=== PATIENT | male | born 1945 | race Two or more races ===

== ENCOUNTER 2023-10-08 12:53 | Inpatient (IN) | payer MEDICARE, OTHER ==
[~2023-10-08] VITALS: Ht 175.3 cm; Wt 86.4 kg
[2023-10-08] MEDS: ASPirin 325 MG TAB PO ONE (13:41)
[2023-10-08] MEDS: MAGNESIUM SULFATE 1GM/100ML 100 ML IV SCH (13:41)
[2023-10-08] MEDS: MORPHINE SULFATE 4 MG/ML SYR/VIAL IV ONE (13:42)
[2023-10-08 13:52] LABS: Basophils # (auto) 0 10 ^3/uL (0-0.2); Basophils % (auto) 0.2 % (0.0-2.0); Eosinophils # (auto) 0 10 ^3/uL (0-0.8); Hematocrit 44.9 % (41.0-53.0); Hemoglobin 15.2 g/dL (13.5-17.5); Mean Corpuscular Hgb Conc. 33.8 g/dL (32.0-36.0); Mean Corpuscular Volume 91.6 fL (80.0-100.0); Monocytes # (auto) 0.2 10 ^3/uL (0-1.3); Monocytes % (auto) 3.8 % (0.0-12.0); Neutrophils # (auto) 5.1 10 ^3/uL (1.6-8.6); White Blood Cell 6.4 10^3/uL (4.4-10.8)
[2023-10-08 13:56] VITALS: PULSE 114; RESP 22; O2SAT 94
[2023-10-08 14:21] LABS: Alanine Aminotransferase 36 U/L (7-40); Alkaline Phosphatase 61 U/L (46-116); Anion Gap 7 (5-15); Aspartate Aminotransferase 23 U/L (13-40); BUN/Creatinine Ratio 11.1 (10.0-20.0); Blood Urea Nitrogen 15 mg/dL (9-23); Calcium 8.5 mg/dL (8.7-10.4); Carbon Dioxide 27 mmol/L (20-30); Chloride 104 mmol/L (98-107); Glucose 217 mg/dL (74-106); Magnesium 1.7 mg/dL (1.6-2.6); Potassium 3.4 mmol/L (3.5-5.1); Sodium 138 mmol/L (136-145)
[2023-10-08 14:22] LABS: Bilirubin, Total 0.6 mg/dL (0.2-1.0); Total Protein 6.4 g/dL (5.7-8.2)
[2023-10-08 14:22] LABS: COVID19 ANTIGEN SOFIA FIA POSITIVE (NEGATIVE)
[2023-10-08] MEDS: TERBUTALINE SULFATE 1 MG/ML 1ML VIAL SC ONE (14:23)
[2023-10-08 14:25] LABS: Rapid Influenza A Negative (Negative); Rapid Influenza B Negative (Negative)
[2023-10-08 15:11] LABS: Urine Bacteria None Seen /hpf (None Seen)
[2023-10-08 15:22] LABS: Urine Blood Negative /uL (Negative); Urine Clarity Clear (Clear); Urine Color Yellow (Yellow); Urine Protein, UAD 2+ (Negative); Urine Urobilinogen Normal (Negative); Urine WBC <1 /hpf (0 - 3)
[2023-10-08] MEDS ORDERED: REMDESIVIR PER PHARMACY 0 ML IV SCH (15:30)
[2023-10-08] MEDS ORDERED: ASPI-325 PO (15:55)
[2023-10-08] MEDS ORDERED: ALBU108A5 INH (15:55)
[2023-10-08] MEDS ORDERED: LEVOTAB51 PO (15:55)
[2023-10-08] MEDS ORDERED: FIN5T PO (15:55)
[2023-10-08] MEDS ORDERED: AMLO1TAB22 PO (15:55)
[2023-10-08] MEDS ORDERED: ICOS1CAP3 PO (15:55)
[2023-10-08] MEDS ORDERED: DIPH25CA51 PO (15:55)
[2023-10-08] MEDS ORDERED: LOPE2CAP2 PO (15:55)
[2023-10-08] MEDS ORDERED: CHOL20002 PO (15:55)
[2023-10-08] MEDS ORDERED: GABA-1250 PO (15:55)
[2023-10-08] MEDS ORDERED: DIPH-751 PO (15:55)
[2023-10-08] MEDS ORDERED: METO-289 PO (15:55)
[2023-10-08] MEDS ORDERED: NIRM1TAB8 PO (15:55)
[2023-10-08] MEDS ORDERED: FLUT50SP NAS (15:55)
[2023-10-08] MEDS ORDERED: FEXO-131 PO (15:55)
[2023-10-08] MEDS ORDERED: TAMS0.4C39 PO (15:55)
[2023-10-08] MEDS ORDERED: NITROGLYCERIN 0.4 MG SL TAB SL PRN (16:00)
[2023-10-08] MEDS ORDERED: ALBUTEROL SULF 2.5 MG/0.5ML(0.5%) NEB SOLN NEB PRN (16:00)
[2023-10-08] MEDS ORDERED: ACETAMINOPHEN 325 MG TAB PO PRN (16:00)
[2023-10-08] MEDS ORDERED: MORPHINE SULFATE INJ 2 MG/ml SYRG IV PRN (16:00)
[2023-10-08] MEDS: POTASSIUM EFFERVESENT TAB 25 MEQ PO ONE (16:38)
[2023-10-08] MEDS: methylPREDNISolone SOD SUCC 125 MG/2 ML VL IV ONE (16:39)
[2023-10-08] MEDS: FUROSEMIDE 20 MG/2 ML VIAL IV ONE (16:40)
[2023-10-08 16:43] LABS: Triglycerides 116 mg/dL (< 150)
[2023-10-08 16:44] LABS: LDL Cholesterol 67 mg/dL (< 100)
[2023-10-08 16:45] LABS: Cholesterol 133 mg/dL (< 200); HDL Cholesterol 33 mg/dL (40-59)
[2023-10-08] MEDS: REMDESIVIR 200 MG in NS 210ml LOADING DOSE ADULT IV ONE (17:00)
[2023-10-08] MEDS ORDERED: IPRATROPIUM BROM 0.5 MG/2.5ML INH SOL NEB SCH (18:00)
[2023-10-08] MEDS ORDERED: ALBUTEROL SULF 2.5 MG/0.5ML(0.5%) NEB SOLN NEB SCH (18:00)
[2023-10-08 18:43] VITALS: BP 137/71; PULSE 100; RESP 18; O2SAT 96
[2023-10-08 22:05] VITALS: O2SAT 99
[2023-10-08] MEDS: ALBUTEROL SULF HFA 90MCG INH 200DOSE IN SCH (22:15)
[2023-10-08 22:48] VITALS: BP 150/83; PULSE 81; RESP 18; TEMP 98.7; O2SAT 97
[2023-10-08 23:20] VITALS: PULSE 81; RESP 18; O2SAT 97
[2023-10-08] MEDS: FLUTICASONE PROP NASAL SPR 0.05 % (50MCG) 16GM SCH (23:46)
[2023-10-08] MEDS: GABAPENTIN 300 MG CAP PO SCH (23:46)
[2023-10-08] MEDS: methylPREDNISolone SOD SUCC 40 MG/ML VL IV SCH (23:46)
[2023-10-09] VITALS (11 sets, daily range): BP systolic 113–148; BP diastolic 59–86; PULSE 81–100; RESP 16–18; TEMP 97.5–98.5; O2SAT 90–98
[2023-10-09 05:20] LABS: Basophils # (auto) 0 10 ^3/uL (0-0.2); Basophils % (auto) 0.1 % (0.0-2.0); Eosinophils # (auto) 0 10 ^3/uL (0-0.8); Hematocrit 43.2 % (41.0-53.0); Lymphocytes # (auto) 0.6 10 ^3/uL (0.4-5.4); Lymphocytes % (auto) 5.3 % (10.0-50.0); Mean Corpuscular Hemoglobin 31.4 pg (28.0-32.0); Mean Corpuscular Hgb Conc. 34.8 g/dL (32.0-36.0); Mean Corpuscular Volume 90.3 fL (80.0-100.0); Monocytes # (auto) 0.4 10 ^3/uL (0-1.3); Monocytes % (auto) 3.6 % (0.0-12.0); Neutrophils # (auto) 10.5 10 ^3/uL (1.6-8.6); Red Blood Cells 4.79 10^6/uL (4.5-5.90); Red Cell Distribution Width 13.9 % (11.8-14.3); White Blood Cell 11.6 10^3/uL (4.4-10.8)
[2023-10-09 05:35] LABS: Alanine Aminotransferase 32 U/L (7-40); Albumin 3.8 g/dL (3.2-4.8); Alkaline Phosphatase 49 U/L (46-116); Anion Gap 10 (5-15); Aspartate Aminotransferase 21 U/L (13-40); BUN/Creatinine Ratio 12.4 (10.0-20.0); Blood Urea Nitrogen 15 mg/dL (9-23); Calcium 8.5 mg/dL (8.7-10.4); Carbon Dioxide 22 mmol/L (20-30); Chloride 105 mmol/L (98-107); Glucose 249 mg/dL (74-106); Potassium 4.2 mmol/L (3.5-5.1); Sodium 137 mmol/L (136-145)
[2023-10-09 05:36] LABS: Bilirubin, Total 0.7 mg/dL (0.2-1.0); Total Protein 6.9 g/dL (5.7-8.2)
[2023-10-09 08:37] LABS: Lactic Acid w/Reflex 6.1 mmol/L (0.4-2.0)
[2023-10-09] MEDS: LEVOCETIRIZINE HYDROCHLORIDE 5 MG PO SCH (10:00)
[2023-10-09] MEDS: ENOXAPARIN SOD 40 MG/0.4 ML SYRINGE SC SCH (11:05)
[2023-10-09] MEDS: FEXOFENADINE HCL 60 MG TAB PO SCH (11:06)
[2023-10-09] MEDS: CHOLECALCIFEROL (VITD3) 1,000UNIT=25mCg TAB PO SCH (11:06)
[2023-10-09] MEDS: TAMSULOSIN HYDROCHLORIDE 0.4 MG CAP PO SCH (11:06)
[2023-10-09] MEDS: ASPirin-EC 81 mg tab PO SCH (11:07)
[2023-10-09] MEDS: amLODIPine BESYLATE 5 MG TAB PO SCH (11:07)
[2023-10-09] MEDS: METOPROLOL SUCCINATE XL 50 MG TAB PO SCH (11:07)
[2023-10-09] MEDS: FINASTERIDE 5 MG TAB PO SCH (11:07)
[2023-10-09] MEDS: FUROSEMIDE 20 MG/2 ML VIAL IV ONE (11:08)
[2023-10-09] MEDS ORDERED: REMDESIVIR 100mg 100 MG in SODIUM CHL 0.9% 230 ML IV SCH (15:00)
[2023-10-09 15:59] LABS: Lactic Acid w/Reflex 4.1 mmol/L (0.4-2.0)
[2023-10-10 06:30] VITALS: O2SAT 95
[2023-10-10 07:25] LABS: Basophils # (auto) 0 10 ^3/uL (0-0.2); Eosinophils # (auto) 0 10 ^3/uL (0-0.8); Hematocrit 42.1 % (41.0-53.0); Hemoglobin 14.6 g/dL (13.5-17.5); Lymphocytes # (auto) 1.2 10 ^3/uL (0.4-5.4); Lymphocytes % (auto) 8.6 % (10.0-50.0); Mean Corpuscular Hemoglobin 30.9 pg (28.0-32.0); Mean Corpuscular Hgb Conc. 34.7 g/dL (32.0-36.0); Mean Corpuscular Volume 89.1 fL (80.0-100.0); Monocytes # (auto) 0.6 10 ^3/uL (0-1.3); Monocytes % (auto) 4.5 % (0.0-12.0); Neutrophils # (auto) 11.6 10 ^3/uL (1.6-8.6); Neutrophils % (auto) 86.9 % (37.0-80.0); Red Blood Cells 4.72 10^6/uL (4.5-5.90); Red Cell Distribution Width 13.6 % (11.8-14.3); White Blood Cell 13.4 10^3/uL (4.4-10.8)
[2023-10-10 07:37] LABS: Alanine Aminotransferase 26 U/L (7-40); Albumin 3.9 g/dL (3.2-4.8); Alkaline Phosphatase 53 U/L (46-116); Anion Gap 7 (5-15); Aspartate Aminotransferase 19 U/L (13-40); BUN/Creatinine Ratio 25.2 (10.0-20.0); Calcium 8.7 mg/dL (8.7-10.4); Carbon Dioxide 27 mmol/L (20-30); Chloride 102 mmol/L (98-107); Glucose 201 mg/dL (74-106); Magnesium 2.2 mg/dL (1.6-2.6); Potassium 4.2 mmol/L (3.5-5.1); Sodium 136 mmol/L (136-145)
[2023-10-10 07:38] LABS: Bilirubin, Total 0.5 mg/dL (0.2-1.0); Blood Urea Nitrogen 30 mg/dL (9-23); Total Protein 6.6 g/dL (5.7-8.2)
[2023-10-10 09:30] VITALS: BP 112/70; PULSE 80; RESP 18; TEMP 98.8; O2SAT 93
[2023-10-10 10:00] VITALS: O2SAT 93
[2023-10-10 12:22] VITALS: BP 114/64; RESP 18; TEMP 98.4; O2SAT 94
[2023-10-10] MEDS: THROAT LOZENGES(CEPASTAT) MT PRN (12:22)
[2023-10-10 14:48] VITALS: O2SAT 96
[2023-10-11 08:52] LABS: Hepatitis B Surface Antigen Negative (Negative)
[2023-10-11 09:13] LABS: Hepatitis C Antibody Negative (Negative)
== END 2023-10-10 16:15 | disposition home or self-care (01) | DRG 177 ==
LOC: EDBD 12:53 → ER 12:59 → TELE 15:54 → TELE-CENTR 22:42
PROVIDERS: ADMIT Nurse Practitioner Family; ATTEND Nurse Practitioner Family
PROC: XW033E5 Introduction of Remdesivir Anti-infective into Peripheral Vein, Percutaneous Approach, New Technology Group 5 (ICD-10-PCS; principal; 2023-10-08)
DX: U07.1 COVID-19 (principal); I50.41 Acute combined systolic (congestive) and diastolic (congestive) heart failure; J96.01 Acute respiratory failure with hypoxia; E87.6 Hypokalemia; K21.9 Gastro-esophageal reflux disease without esophagitis; N40.0 Benign prostatic hyperplasia without lower urinary tract symptoms; I11.0 Hypertensive heart disease with heart failure; D72.829 Elevated white blood cell count, unspecified; R73.9 Hyperglycemia, unspecified
CPT/HCPCS: 36415; 71045; 80053; 80061; 81001; 83036; 83605; 83735; 83880; 84443; 84484; 85025; 86803; 87340; 87426; 87804; 93005; 93306; 94640; G0378